=== PATIENT | female | born 1975 | race Caucasian/White ===

== ENCOUNTER 2020-05-13 13:10 | Observation (INO) | payer BC, OTHER ==
[~2020-05-13] VITALS: Ht 170.2 cm; Wt 104.3 kg
[2020-05-13 14:05] LABS: BASOPHILS % 0.2 % (0.0-1.0); EOSINOPHILS # (AUTO) 0.1 (0.0-0.4); EOSINOPHILS % 0.6 % (0.0-6.0); HEMATOCRIT 40.7 % (34.2-44.1); LYMPHOCYTES # (AUTO) 1.3 (1.0-3.2); LYMPHOCYTES % 9.5 % (18.0-39.1); MEAN CORPUSCULAR HEMOGLOBIN 19.8 pg (28-32); MEAN CORPUSCULAR VOLUME 73.3 fL (81-99); MONOCYTES # (AUTO) 0.6 (0.2-0.8); MONOCYTES % 4.5 % (4.4-11.3); NEUTROPHILS # (AUTO) 11.9 (2.1-6.9); NEUTROPHILS % 84.5 % (38.7-80.0); PLATELET COUNT 271 x10e3/uL (140-360); RED BLOOD COUNT 5.55 x10e6/uL (3.6-5.1); RED CELL DISTRIBUTION WIDTH 19.9 % (11.7-14.4)
[2020-05-13 14:17] LABS: ALANINE AMINOTRANSFERASE 11 IU/L (0-55); ALBUMIN 3.6 g/dL (3.5-5.0); ALBUMIN/GLOBULIN RATIO 0.9 (0.8-2.0); ALKALINE PHOSPHATASE 72 IU/L (40-150); ANION GAP 16.2 mmol/L (8-16); BLOOD UREA NITROGEN 21 mg/dL (7-26); BUN/CREATININE RATIO 22 (6-25); CALCIUM 8.7 mg/dL (8.4-10.2); CARBON DIOXIDE 25 mmol/L (22-29); CHLORIDE 96 mmol/L (98-107); CREATINE KINASE 26 IU/L (29-168); CREATININE, SERUM 0.97 mg/dL (0.57-1.11); EST GLOMERULAR FILTRATION RATE > 60 ML/MIN (60-); GLUCOSE 102 mg/dL (74-118); SODIUM 132 mmol/L (136-145)
[2020-05-13 14:18] LABS: POTASSIUM 5.2 mmol/L (3.5-5.1)
[2020-05-13] MEDS ORDERED: ASPIRIN 81 MG CHEW TAB PO ONE (15:15)
[2020-05-13] MEDS ORDERED: KETOROLAC TROMETHAMINE 30 MG/ML VIAL IV STA (16:13)
[2020-05-13] MEDS ORDERED: ONDANSETRON HCL INJ 2MG/ML 2ML 2 MG/ML VIAL IV STA (16:48)
[2020-05-13] MEDS ORDERED: SOD POLYSTYRENE SULFONATE SUSP 15 GM/60 ML BTL PO ONE (17:00)
[2020-05-13] MEDS ORDERED: MORPHINE SULFATE INJ 4 MG/ML INJ 1ML IV PRN (17:00)
[2020-05-13] MEDS ORDERED: AMLODIPINE BESYL5 MG PO (18:11)
[2020-05-13] MEDS ORDERED: ALPRAZOLAM2 MG PO (18:11)
[2020-05-13] MEDS ORDERED: LOPRESSOR25 MG PO (18:11)
[2020-05-13] MEDS ORDERED: SODIUM CHLORIDE 0.9% 100 ML ONE (19:46)
[2020-05-13] MEDS ORDERED: IOPAMIDOL 370 MG/ML 200 ML INFUS..BTL INJ ONE (19:46)
[2020-05-13] MEDS: FAMOTIDINE 20 MG TAB PO SCH ×2 (20:00→20:35)
[2020-05-13] MEDS ORDERED: ONDANSETRON HCL INJ 2MG/ML 2ML 2 MG/ML VIAL IV PRN (20:00)
[2020-05-13] MEDS ORDERED: HYDRALAZINE HCL 20 MG/ML VIAL IV PRN (20:00)
[2020-05-13] MEDS: ALPRAZOLAM 0.5 MG TAB PO PRN (20:15)
[2020-05-13 20:52] VITALS: BP 88/62
[2020-05-13 22:13] VITALS: BP 88/62
[2020-05-14] VITALS (8 sets, daily range): BP systolic 80–112; BP diastolic 63–81
[2020-05-14 01:42] LABS: CREATINE KINASE MB 0.3 ng/mL (0-5.0)
[2020-05-14] MEDS: ACETAMINOPHEN 325 MG TAB PO PRN ×2 (04:28→09:48)
[2020-05-14 05:48] LABS: BASOPHILS % 0.3 % (0.0-1.0); EOSINOPHILS # (AUTO) 0.2 (0.0-0.4); EOSINOPHILS % 1.4 % (0.0-6.0); HEMATOCRIT 39.5 % (34.2-44.1); HEMOGLOBIN 10.5 g/dL (12.0-16.0); LYMPHOCYTES # (AUTO) 3.2 (1.0-3.2); LYMPHOCYTES % 26.3 % (18.0-39.1); MEAN CORPUSCULAR HEMOGLOBIN 20.2 pg (28-32); MEAN CORPUSCULAR HGB CONC 26.6 g/dL (31-35); MEAN CORPUSCULAR VOLUME 75.8 fL (81-99); MONOCYTES # (AUTO) 0.8 (0.2-0.8); MONOCYTES % 6.5 % (4.4-11.3); NEUTROPHILS # (AUTO) 7.9 (2.1-6.9); NEUTROPHILS % 64.9 % (38.7-80.0); PLATELET COUNT 250 x10e3/uL (140-360); RED BLOOD COUNT 5.21 x10e6/uL (3.6-5.1); RED CELL DISTRIBUTION WIDTH 19.7 % (11.7-14.4)
[2020-05-14 06:16] LABS: ALANINE AMINOTRANSFERASE 13 IU/L (0-55); ALBUMIN 3.3 g/dL (3.5-5.0); ALBUMIN/GLOBULIN RATIO 0.9 (0.8-2.0); ALKALINE PHOSPHATASE 72 IU/L (40-150); ANION GAP 13.1 mmol/L (8-16); BLOOD UREA NITROGEN 20 mg/dL (7-26); BUN/CREATININE RATIO 23 (6-25); CALCIUM 8.3 mg/dL (8.4-10.2); CARBON DIOXIDE 31 mmol/L (22-29); CHLORIDE 98 mmol/L (98-107); CREATININE, SERUM 0.87 mg/dL (0.57-1.11); EST GLOMERULAR FILTRATION RATE > 60 ML/MIN (60-); GLUCOSE 91 mg/dL (74-118); POTASSIUM 4.1 mmol/L (3.5-5.1); SODIUM 138 mmol/L (136-145)
[2020-05-14 06:39] LABS: CHOL/HDL RATIO 5.2 (3.0-3.6)
[2020-05-14 06:59] LABS: THYROID STIMULATING HORMONE 2.041 uIU/mL (0.350-4.940)
[2020-05-14] MEDS: AMLODIPINE BESYLATE 5 MG TAB PO SCH (09:00)
[2020-05-14] MEDS ORDERED: LIDOCAINE 4% PATCH TP SCH ×2 (09:00→21:00)
[2020-05-14] MEDS: FAMOTIDINE 20 MG TAB PO SCH (09:40)
[2020-05-14] MEDS: METOPROLOL TARTRATE 25 MG TAB PO SCH ×2 (09:41→17:00)
[2020-05-14] MEDS: ALPRAZOLAM 0.5 MG TAB PO PRN ×2 (10:24→16:12)
[2020-05-14 11:01] LABS: CREATINE KINASE MB 0.4 ng/mL (0-5.0)
[2020-05-14] MEDS ORDERED: LORAZEPAM INJ 2 MG/ML VIAL IV ONE (13:30)
[2020-05-14] MEDS ORDERED: ALPRAZOLAM 0.5 MG TAB PO PRN (18:45)
[2020-05-14] MEDS: TRAMADOL HCL 50 MG TAB PO PRN (18:54)
[2020-05-14] MEDS ORDERED: CYMBALTA30 MG PO (19:32)
[2020-05-14] MEDS ORDERED: PROTONIX20 MG PO (19:37)
[2020-05-14] MEDS ORDERED: LOSARTAN POTAS100 MG PO (19:37)
[2020-05-14] MEDS ORDERED: RISPERIDONE1 MG PO (19:37)
[2020-05-14] MEDS ORDERED: LAMOTRIGINE100 MG PO ×2 (19:37)
[2020-05-14] MEDS ORDERED: LAMOTRIGINE 100 MG TAB PO SCH (21:00)
[2020-05-15] VITALS: BP 104/69
[2020-05-15 04:00] VITALS: BP 105/79
[2020-05-15] MEDS ORDERED: PANTOPRAZOLE SOD 40 MG TABEC PO SCH (07:30)
[2020-05-15 07:38] VITALS: BP 99/72
[2020-05-15 08:05] VITALS: BP 99/72
[2020-05-15] MEDS: AMLODIPINE BESYLATE 5 MG TAB PO SCH (09:00)
[2020-05-15] MEDS ORDERED: DULOXETINE HCL 30 MG DELAYED RELEASE PO SCH (09:00)
[2020-05-15] MEDS ORDERED: LAMOTRIGINE 100 MG TAB PO SCH (09:00)
[2020-05-15] MEDS ORDERED: ALPRAZOLAM1 MG PO (09:13)
[2020-05-15] MEDS: FAMOTIDINE 20 MG TAB PO SCH (09:14)
[2020-05-15] MEDS: METOPROLOL TARTRATE 25 MG TAB PO SCH (09:15)
[2020-05-15] MEDS: TRAMADOL HCL 50 MG TAB PO PRN (09:54)
[2020-05-15 11:32] VITALS: BP 97/72
[2020-05-15] MEDS ORDERED: KETOROLAC TROMETHAMINE 30 MG/ML VIAL IV STA (12:25)
[2020-05-15] MEDS ORDERED: ALPRAZOLAM 0.25 MG TAB PO ONE (15:30)
== END 2020-05-15 15:40 | disposition home or self-care (01) ==
LOC: ER 13:21 → ERHOLD 15:49 → MED/SURG3 18:43
PROVIDERS: ADMIT Internal Medicine; ATTEND Internal Medicine
DX: R55 Syncope and collapse (principal); M51.36 Other intervertebral disc degeneration, lumbar region; M51.26 Other intervertebral disc displacement, lumbar region; M48.07 Spinal stenosis, lumbosacral region; I10 Essential (primary) hypertension; F41.9 Anxiety disorder, unspecified; E66.01 Morbid (severe) obesity due to excess calories; Z68.36 Body mass index [BMI] 36.0-36.9, adult; F32.9 Major depressive disorder, single episode, unspecified; M25.552 Pain in left hip; Z91.81 History of falling; Z20.828 Contact with and (suspected) exposure to other viral communicable diseases
CPT/HCPCS: 36415; 70450; 70496; 70498; 70551; 72131; 73700; 80053 ×2; 80061; 82550 ×2; 82553 ×2; 83036; 84443; 84484 ×2; 84702; 85025 ×2; 93005; 93306; 93880; 97161; 97530; 99284; G0378 ×3; J1885 ×2; J2060; J2270; J2405; J7050; Q9967; S0164; U0002

== ENCOUNTER → 2024-03-16 | Day surgery (SDC) | payer BC, OTHER ==
[~2024-03-16] MED LIST: ACETAMINOPHEN 1000 MG/100 ML IV ONE; ALPRAZOLAM1 MG PO; ALPRAZOLAM2 MG PO; AMLODIPINE BESYL5 MG PO; BELSOMRA20 MG PO; BUPIVACAINE HCL 0.5% INJ 30 ML VIAL INJ ONE; CYMBALTA30 MG PO; DEXAMETHASONE SOD PHOS INJ 4 MG/ML SDV ONE; EPHEDRINE SULFATE INJ 50 MG/ML VIAL ONE; FAMOTIDINE 20 MG/2 ML VIAL IV ONE; FENTANYL CITRATE/PF 100MCG/2 ML INJ ONE; HYDROCODON-ACE1 EA12 PO; HYDROXYZINE HCL25 MG PO; LAMOTRIGINE100 MG PO; LATUDA40 MG PO; LIDOCAINE HCL 2% LOCAL INJ 5 ML SDV VIAL INJ ONE; LOPRESSOR25 MG PO; LOSARTAN POTAS100 MG PO; MIDAZOLAM HCL 2 MG/2 ML VIAL ONE; NEOSTIGMINE 1 MG/ML 10ML VIAL ONE; ONDANSETRON HCL INJ 2MG/ML 2ML 2 MG/ML VIAL ONE; PHENYLEPHRINE HCL 1% 10 MG/ML VIAL ONE; PROPOFOL IV EMULSION 10 MG/ML 20 ML VIAL ONE; PROTONIX20 MG PO; RISPERIDONE1 MG PO; SEVOFLURANE INHAL SOLN 250 ML PEN BTL ONE; VASOPRESSIN INJ 20 UNIT/ML VIAL ONE
[2024-03-16] MEDS: CEFAZOLIN SODIUM 2 GM ONE (09:07)
[2024-03-16] MEDS: LACTATED RINGER'S 1,000 ML ONE (09:09)
[2024-03-16 09:11] LABS: BASOPHILS # (AUTO) 0.1 (0.0-0.1); BASOPHILS % 0.6 % (0.0-1.0); EOSINOPHILS # (AUTO) 0.7 (0.0-0.4); EOSINOPHILS % 7.2 % (0.0-6.0); HEMATOCRIT 44.5 % (34.2-44.1); HEMOGLOBIN 12.5 g/dL (12.0-16.0); LYMPHOCYTES # (AUTO) 2.4 (1.0-3.2); LYMPHOCYTES % 23.8 % (18.0-39.1); MEAN CORPUSCULAR HEMOGLOBIN 23.3 pg (28-32); MEAN CORPUSCULAR HGB CONC 28.1 g/dL (31-35); MEAN CORPUSCULAR VOLUME 82.9 fL (81-99); MONOCYTES # (AUTO) 0.6 (0.2-0.8); NEUTROPHILS # (AUTO) 6.3 (2.1-6.9); NEUTROPHILS % 61.9 % (38.7-80.0); PLATELET COUNT 290 x10e3/uL (140-360); RED BLOOD COUNT 5.37 x10e6/uL (3.6-5.1); RED CELL DISTRIBUTION WIDTH 18.6 % (11.7-14.4)
[2024-03-16 09:27] LABS: ANION GAP 16.6 mmol/L (8-16); CALCIUM 9.2 mg/dL (8.4-10.2); CREATININE, SERUM 0.79 mg/dL (0.57-1.11); POTASSIUM 4.6 mmol/L (3.5-5.1)
[2024-03-16] MEDS: ALBUTEROL/IPRATROPIUM 3 ML NEB ONE (09:33)
[2024-03-16 12:46] VITALS: BP 114/76; PULSE 86; RESP 18; O2SAT 99
== END | disposition home or self-care (01) ==
LOC: OR 08:12
PROVIDERS: ATTEND Podiatrist Foot Surgery
DX: S92.354A Nondisplaced fracture of fifth metatarsal bone, right foot, initial encounter for closed fracture (principal); S92.355A Nondisplaced fracture of fifth metatarsal bone, left foot, initial encounter for closed fracture; I10 Essential (primary) hypertension; K21.9 Gastro-esophageal reflux disease without esophagitis; F41.9 Anxiety disorder, unspecified; F32.A Depression, unspecified; F17.200 Nicotine dependence, unspecified, uncomplicated; X58.XXXA Exposure to other specified factors, initial encounter; Z79.899 Other long term (current) drug therapy
CPT/HCPCS: 28485; 36415; 71046; 76000; 80048; 84702; 85025; 93005; 94640; C1713 ×5; C1734; J0131; J0690; J1100; J2003; J2250; J2371; J2405; J2704; J2710; J3010; J7121